=== PATIENT | male | born 1985 | race Caucasian/White ===

== ENCOUNTER → 2020-12-07 | Outpatient (REF) ==
[~2020-12-07] MED LIST: COLA50CA3 PO; MAPA500T17 PO; NO HOME MEDS
--- NOTE | 2020-12-07 09:59 | REPPI ---
INDICATION: DISABILITY DETERMINATION COMPARISON: None. TECHNIQUE: Internal rotation, external rotation, and Y view. FINDINGS: No acute fracture or dislocation. The acromioclavicular and glenohumeral joints are intact. No periarticular calcifications or degenerative changes are appreciated. Sub acromial space is normal. Surrounding soft tissues are unremarkable. IMPRESSION: Normal right shoulder radiographs. <Electronically signed by Aleksandr Wilder > 12/07/20 0942
--- NOTE | 2020-12-07 10:01 | REPPI ---
INDICATION: DISABILITY DETERMINATION COMPARISON: None. TECHNIQUE: AP, lateral, coned-down views of the lumbar spine. FINDINGS: Three views of the lumbosacral spine demonstrate satisfactory alignment and lordosis without acute fracture / compression injury or subluxation. L5 spondylolysis without spondylolisthesis cannot be excluded. No further significant degenerative changes are appreciated and the disc spaces appear relatively well maintained. IMPRESSION: 1. Suggesting L5 spondylolysis without spondylolisthesis <Electronically signed by Aleksandr Wilder > 12/07/20 0957
== END ==
LOC: M PLAIMG 09:25
PROVIDERS: ATTEND Internal Medicine
DX: Z02.71 Encounter for disability determination (principal)